=== PATIENT | male | born 1960 | race Caucasian/White ===

== ENCOUNTER 2021-04-02 18:33 | Emergency (ER) | payer BC ==
[~2021-04-02 18:33] MED LIST: ASPIR 8181 MG PO; CELEBREX200 MG PO; COLACE 100MG C100 MG PO; ELIQUIS5 MG PO; LIPITOR TAB 2020 MG PO; LISINOPRIL10 MG PO; NEURONTIN100 MG PO; PRILOSEC OTC20 MG PO; ROXICODONE5 MG PO; TYLENOL 500 MG500 MG PO; ULTRAM50 MG PO
[2021-04-02] MEDS ORDERED: ERYTHROMYCIN O3.5 GM OU (21:02)
== END 2021-04-02 21:10 | disposition home or self-care (01) ==
LOC: ER1 18:33
DX: S05.02XA Injury of conjunctiva and corneal abrasion without foreign body, left eye, initial encounter (principal); S05.01XA Injury of conjunctiva and corneal abrasion without foreign body, right eye, initial encounter; W22.8XXA Striking against or struck by other objects, initial encounter
CPT/HCPCS: 99283

== ENCOUNTER → 2021-07-24 | Outpatient (CLI) | payer BC ==
[~2021-07-24] MED LIST changes: +ERYTHROMYCIN O3.5 GM OU
[2021-07-24 09:20] LABS: BUN/CREATININE RATIO 23 (0-10)
== END ==
LOC: LAB 07:03
PROVIDERS: Emergency Medicine
DX: I10 Essential (primary) hypertension (principal); R73.09 Other abnormal glucose; R53.83 Other fatigue; E53.8 Deficiency of other specified B group vitamins
CPT/HCPCS: 36415; 80048; 94010

== ENCOUNTER 2021-11-26 12:33 | Emergency (ER) | payer BC ==
[2021-11-26 14:43] LABS: HEMOGLOBIN 14.3 gm/dl (14.0-17.5); RED BLOOD COUNT 4.79 M/UL (4.20-5.50); WHITE BLOOD COUNT 5.6 K/UL (4.5-11.0)
[2021-11-26 15:13] LABS: BUN/CREATININE RATIO 28 (0-10)
== END 2021-11-26 17:45 | disposition home or self-care (01) ==
LOC: ER1 12:33 → CDU 16:16 → ER1 17:45
PROVIDERS: Emergency Medicine
DX: R00.1 Bradycardia, unspecified (principal); I11.9 Hypertensive heart disease without heart failure; E78.5 Hyperlipidemia, unspecified; Z79.82 Long term (current) use of aspirin
CPT/HCPCS: 80053; 82550; 82553; 83735; 83880; 84100; 84439; 84443; 84484; 85025; 93005; 93270; 99285

== ENCOUNTER → 2022-01-30 | Outpatient (CLI) | payer BC | LOC: LAB 05:56 | DX: R00.1 Bradycardia, unspecified (principal) | CPT/HCPCS: 36415; 84439; 84443 ==

== ENCOUNTER → 2022-04-02 | Outpatient (CLI) | payer BC | LOC: LAB 07:10 | DX: E03.8 Other specified hypothyroidism (principal) | CPT/HCPCS: 36415; 84443 ==

== ENCOUNTER → 2022-06-29 | Outpatient (CLI) | payer BC ==
[2022-06-29 08:37] LABS: BUN/CREATININE RATIO 30 (0-10)
[2022-07-01 11:14] LABS: CHOLESTEROL, TOTAL 157 mg/dL (100-199); HDL SIZE 8.6 nm (>=9.2); HDL-C 42 mg/dL (>39); HDL-P (TOTAL) 31.2 umol/L (>=30.5); LARGE VLDL-P 4.7 nmol/L (<=2.7); LDL SIZE 20.1 nm (>20.5); LDL SIZE 20.1 nm (>=20.8); LDL-C 82 mg/dL (0-99); LDL-P 781 nmol/L (<1000); LP-IR SCORE 69 (<=45); SMALL LDL-P 479 nmol/L (<=527); TRIGLYCERIDES 192 mg/dL (0-149); VLDL SIZE 44.9 nm (<=46.6)
== END ==
LOC: LAB 07:09
PROVIDERS: Emergency Medicine
DX: Z12.5 Encounter for screening for malignant neoplasm of prostate (principal); I25.10 Atherosclerotic heart disease of native coronary artery without angina pectoris; I10 Essential (primary) hypertension; E78.2 Mixed hyperlipidemia
CPT/HCPCS: 36415; 80053; 80061; 83704; 84153; 84550